=== PATIENT | male | born 1985 | race African-American/Black ===

== ENCOUNTER 2021-04-26 14:28 | Outpatient (CLI) | payer BC | END 2021-04-26 14:29 | disposition home or self-care (01) | LOC: BICCT 14:28 | PROVIDERS: ATTEND Neurological Surgery | DX: M54.50 Low back pain, unspecified (principal); M51.26 Other intervertebral disc displacement, lumbar region; M51.27 Other intervertebral disc displacement, lumbosacral region | CPT/HCPCS: 72131 ==

== ENCOUNTER 2024-02-14 10:00 | Outpatient (CLI) | payer OTHER | END 2024-02-14 12:00 | disposition home or self-care (01) | LOC: LABBT 10:00 | PROVIDERS: ATTEND Neurological Surgery | DX: Z01.810 Encounter for preprocedural cardiovascular examination (principal); M54.16 Radiculopathy, lumbar region | CPT/HCPCS: 93005; 93010 ==

== ENCOUNTER 2024-02-21 05:38 | Day surgery (SDC) | payer OTHER ==
[2024-02-14 09:20] VITALS: BMI 28.8
[2024-02-21] MEDS ORDERED: EPINEPHrine 1 MG/ML VIAL ONE (05:55)
[2024-02-21] MEDS ORDERED: Bupivacaine PF 0.5% 30 ML VIAL ONE (05:56)
[2024-02-21] MEDS ORDERED: Thrombin 5000 UNITS/5 ML VIAL ONE (05:56)
[2024-02-21] MEDS ORDERED: CEFAZOLIN 2 GM VIAL ONE ×2 (06:13→10:19)
[2024-02-21] MEDS ORDERED: Rocuronium Bromide 10 MG/ML (10ML VIAL) ONE (06:42)
[2024-02-21] MEDS ORDERED: PROPOFOL 20 ML ONE (06:42)
[2024-02-21] MEDS ORDERED: HYDROmorphone 2 MG/ML VIAL ONE (06:42)
[2024-02-21] MEDS ORDERED: Midazolam HCl 2 mg/2 ml Vial ONE (06:42)
[2024-02-21] MEDS ORDERED: Ondansetron PF 4 MG/2 ML Vial ONE (07:26)
[2024-02-21] MEDS ORDERED: Dexamethasone 20 MG/5 ML VIAL ONE (07:26)
[2024-02-21] MEDS ORDERED: ePHEDrine Sulfate 50 MG/10 ML VIAL ONE (08:07)
[2024-02-21] MEDS ORDERED: SUGAMMADEX SODIUM 200 MG/2 ML VIAL ONE (08:16)
[2024-02-21] MEDS ORDERED: Tamsulosin HCl 0.4 MG CAP ONE (08:52)
[2024-02-21] MEDS ORDERED: fentaNYL 50 mcg/mL 1 mL Vial ONE (08:53)
[2024-02-21] MEDS ORDERED: HYDROcodone/Acetaminophen 5/325 mg Tablet ONE (10:04)
== END 2024-02-21 10:37 | disposition home or self-care (01) ==
LOC: SDC 05:38
PROVIDERS: ATTEND Neurological Surgery
PROC: 0SB20ZZ Excision of Lumbar Vertebral Disc, Open Approach (ICD-10-PCS; principal; 2024-02-21)
DX: M54.16 Radiculopathy, lumbar region (principal); I10 Essential (primary) hypertension; Z79.899 Other long term (current) drug therapy
CPT/HCPCS: J0171; J0665; J1100; J2250; J2405; J2704; J3010